=== PATIENT | female | born 1970 | race Caucasian/White ===

== ENCOUNTER 2018-04-23 07:45 | Day surgery (SDC) | payer BC ==
[2018-04-22 10:31] LABS: BILIRUBIN,URINE NEGATIVE (NEGATIVE); BLOOD, URINE NEGATIVE (NEGATIVE); CLARITY/URINE CLEAR (CLEAR); COLOR,URINE YELLOW (YELLOW); GLUCOSE,URINE NEGATIVE (NEGATIVE); KETONES,URINE NEGATIVE (NEGATIVE); LEUKOCYTE ESTERASE ,URINE NEGATIVE (NEGATIVE); NITRITE, URINE NEGATIVE (NEGATIVE); PROTEIN URINE NEGATIVE (NEGATIVE); UROBILINOGEN,URINE 0.2 (0.2-1.0)
[2018-04-22 10:39] LABS: CALCIUM 8.5 mg/dL (8.4-11.0); CREATININE 0.72 mg/dL (0.55-1.30); POTASSIUM 4.1 mmol/L (3.5-5.1)
[2018-04-22 10:45] LABS: ALBUMIN 3.7 g/dL (3.4-4.8); TOTAL BILIRUBIN 0.6 mg/dL (0.0-1.0)
[2018-04-22 10:50] LABS: BASOPHILS # (AUTO) 0.1 K/uL (0.0-0.2); BASOPHILS % (AUTO) 0.9 % (0.0-2.0); EOSINOPHILS # (AUTO) 0.1 K/uL (0.0-0.4); EOSINOPHILS % (AUTO) 0.8 % (0.0-4.0); HEMATOCRIT 36.9 % (36-48); HEMOGLOBIN 12.7 g/dL (12.0-16.0); LYMPHOCYTES # (AUTO) 1.7 K/uL (1.0-5.5); LYMPHOCYTES % (AUTO) 26.7 % (20.5-51.5); MEAN CORPUSCULAR HEMOGLOBIN 32 pg (27-31); MEAN CORPUSCULAR HGB CONC 34 % (32-36); MEAN CORPUSCULAR VOLUME 94 fL (79.0-98.0); MONOCYTES # (AUTO) 0.5 K/uL (0.0-1.0); MONOCYTES % (AUTO) 7.3 % (1.7-9.3); NEUTROPHILS % (AUTO) 64.3 % (40.0-70.0); PLATELET COUNT (AUTO) 293 K/uL (130-430); RED BLOOD CELL COUNT(AUTO) 3.92 MIL/uL (4.2-6.2); RED CELL DISTRIBUTION WIDTH 12.4 % (9.0-15.0); WHITE BLOOD COUNT (AUTO) 6.4 K/uL (4.8-10.8)
[~2018-04-23] VITALS: Ht 157.5 cm; Wt 63.0 kg
[2018-04-23] MEDS ORDERED: ONDANSETRON HCL 4 MG/2 ML VIAL IVP PRN ×2 (11:15)
[2018-04-23] MEDS ORDERED: fentaNYL CITRATE/PF 100 MCG/2 ML AMP IVP PRN ×2 (11:15)
[2018-04-23] MEDS ORDERED: PROMETHAZINE HCL 25 MG/ML AMP IM PRN ×2 (11:15)
[2018-04-23] MEDS ORDERED: OXYCODONE/ACETAMINOPHEN 5-325 TABLET PO PRN ×3 (11:15→14:15)
[2018-04-23] MEDS ORDERED: MIDAZOLAM HCL 5 MG/ML VIAL (VERSED) IV ONE (11:20)
[2018-04-23] MEDS ORDERED: PROPOFOL 200MG/ 20ML VIAL (DIPRIVAN) IV ONE (11:20)
[2018-04-23] MEDS ORDERED: ROCURONIUM BROMIDE 10 MG/ML (ZEMURON) ONE (11:20)
[2018-04-23] MEDS ORDERED: NS IRRIG SOLN 5000 ML IR ONE (11:20)
[2018-04-23] MEDS ORDERED: LR 1,000 ML IV.SOLN IV ONE (11:20)
[2018-04-23] MEDS ORDERED: SEVOFLURANE 15 MIN GAS INH ONE (11:20)
[2018-04-23] MEDS ORDERED: fentaNYL CITRATE/PF 100 MCG/2 ML AMP ONE (11:20)
[2018-04-23] MEDS ORDERED: KETOROLAC TROMETHAMINE 30 MG VIAL IVP SCH (12:00)
[2018-04-23] MEDS ORDERED: ONDANSETRON HCL 4 MG/2 ML VIAL ONE (12:23)
[2018-04-23 12:39] VITALS: BP_SYST 128
[2018-04-23] MEDS ORDERED: HYDROmorphone 2 MG TAB PO PRN (14:15)
[2018-04-24] MEDS ORDERED: IBUPROFEN 600 MG TABLET PO PRN (11:15)
== END 2018-04-23 14:00 | disposition home or self-care (01) ==
LOC: SMU 07:45 → SDS 07:45
PROVIDERS: ATTEND Obstetrics & Gynecology
DX: N84.0 Polyp of corpus uteri (principal); J45.901 Unspecified asthma with (acute) exacerbation; E03.9 Hypothyroidism, unspecified; Z88.0 Allergy status to penicillin; Z88.8 Allergy status to other drugs, medicaments and biological substances
CPT/HCPCS: 36415; 58563; 80053; 81003; 84703; 85025; 86886; 86900; 86901; 88305; J2250; J2405; J2704; J3010; J7120; C1819